=== PATIENT | female | born 1980 | race Caucasian/White ===

== ENCOUNTER 2017-02-03 10:09 | Emergency (ER) | payer MEDICAID ==
[~2017-02-03] VITALS: Ht 162.6 cm; Wt 61.2 kg
[~2017-02-03 10:09] MED LIST: FERR325T28 PO; MORP15TA10 PO; PANT40TA4 PO; RIVA10TA PO; TRAM50TA2 PO
[2017-02-03 13:19] VITALS: BP 118/74
== END 2017-02-03 13:20 | disposition home or self-care (01) ==
LOC: ER 10:10
DX: F10.129 Alcohol abuse with intoxication, unspecified (principal)
CPT/HCPCS: 99283; A4606; Z7610

== ENCOUNTER 2017-04-27 20:50 | Emergency (ER) | payer SELFPAY ==
[~2017-04-27] VITALS: Ht 175.3 cm; Wt 72.6 kg
--- NOTE | 2017-04-27 20:50 | NUR ---
PT TO ER BB RA FROM STREET FOR ETOH. NO IMMEDIATE SIGNS OF DISTRESS NOTED. PT VITAL SIGNS STABLE. PT ANSWERING QUESTIONS HOWEVER SOMNELENT. PT ADMITS TO DRINKING ALCOHOL. PT TO ER BED, CHANGED INTO GOWN AND CONNECTED TO MONITOR. WILL CONT TO MONITOR PT.
[2017-04-27 21:29] LABS: BASOPHILS # (AUTO) 0.3 /CMM (0.0-0.2); BASOPHILS % (AUTO) 3.3 % (0.0-2.0); EOSINOPHILS % (AUTO) 0.6 % (0.0-6.0); HEMATOCRIT 33 % (33-45); HEMOGLOBIN 11.1 g/dL (11.5-14.8); LYMPHOCYTES # (AUTO) 3.1 /CMM (0.8-4.8); MEAN CORPUSCULAR HEMOGLOBIN 28 PG (26.0-33.0); MEAN CORPUSCULAR HGB CONC 33 g/dl (31.0-36.0); MEAN CORPUSCULAR VOLUME 83 fL (82-100); MONOCYTES # (AUTO) 0.3 /CMM (0.1-1.30); MONOCYTES % (AUTO) 3.9 % (2.0-12.0); NEUTROPHILS # (AUTO) 4.6 /CMM (1.8-8.9); NEUTROPHILS % (AUTO) 55.2 % (43.0-81.0); PLATELET COUNT (AUTO) 121 /CMM (150-450); RDW COEFFICIENT OF VARIATION 17.3 (11.5-15.0); RED BLOOD CELL COUNT(AUTO) 4.02 MIL/uL (4.0-5.2); WHITE BLOOD COUNT (AUTO) 8.3 K/uL (4.3-11.0)
[2017-04-27 21:45] LABS: ALBUMIN 3.5 g/dL (3.4-5.0); BILIRUBIN,TOTAL 0.1 mg/dL (0.2-1.0); CALCIUM, SERUM 7.6 mg/dL (8.5-10.1); CREATININE 0.7 mg/dL (0.6-1.3); POTASSIUM 3.6 mmol/L (3.5-5.1); TOTAL PROTEIN, SERUM 6.6 g/dL (6.4-8.2)
[2017-04-27 21:46] LABS: SALICYLATE 0.8 mg/dL (2.8-20.0)
--- NOTE | 2017-04-28 00:12 | NUR ---
PT SLEEPING IN RRARITAN. NO IMMEDIATE SIGNS OF DISTRESS NOTED. PT VITAL SIGNS STABLE. WILL CONT TO MONITOR PT.
--- NOTE | 2017-04-28 05:21 | NUR ---
PT AMBULATORY WITH STEADY GAIT TO RESTROOM.
--- NOTE | 2017-04-28 06:10 | NUR ---
PT OK TO DISCHARGE PER DR LEBLANC. Patient discharged to home in stable condition. Written and verbal after care instructions given. Patient verbalizes understanding of instruction.Patient is awake and alert to self, day, and place. PT ambulatory with a steady gait.
[2017-04-28 07:02] VITALS: BP 110/74
== END 2017-04-28 07:03 | disposition home or self-care (01) ==
LOC: EDBD → ER 20:52
DX: F10.129 Alcohol abuse with intoxication, unspecified (principal)
CPT/HCPCS: 36415; 80048; 80076; 80329; 85025; 99284; A4606; G0480 ×2; Z7610

== ENCOUNTER 2017-04-28 11:02 | Emergency (ER) | payer SELFPAY ==
[~2017-04-28] VITALS: Ht 165.1 cm; Wt 69.4 kg
--- NOTE | 2017-04-28 11:02 | NUR ---
MARKO [address] FOR ETOH, BS=96MG/DL. GOWNED PT. CONNECTED TO MONITOR. VSEvelia. VENTURA OLIVARES ORDER.
--- NOTE | 2017-04-28 11:23 | NUR ---
CALLED [facility], SAID THEY WILL TELL THE EMS CAPTAIN THAT KODYJOYCE AGUILAR IS HERE.
--- NOTE | 2017-04-28 17:00 | NUR ---
WALKED OUT OF ER; AMBULATORY - STEADY GAIT NOTED; STATES " I HAVE TO WORK". NO ACUTE DISTRESS
[2017-04-28 17:39] VITALS: BP 115/45
== END 2017-04-28 17:00 | disposition home or self-care (01) ==
LOC: EDBD → ER 11:03
DX: F10.129 Alcohol abuse with intoxication, unspecified (principal); Z98.890 Other specified postprocedural states
CPT/HCPCS: A4606; Z7610

== ENCOUNTER 2017-04-28 18:41 | Emergency (ER) | payer SELFPAY ==
[~2017-04-28] VITALS: Ht 167.6 cm; Wt 68.0 kg
--- NOTE | 2017-04-28 18:43 | NUR ---
ETOH; FOUND SLEEPING IN THE SIDEWALK. CONNECTED TO MONITOR. VSS. SEEN BY . AWAITING FOR ORDER.
[2017-04-28 19:16] LABS: BASOPHILS # (AUTO) 0.1 /CMM (0.0-0.2); BASOPHILS % (AUTO) 1.1 % (0.0-2.0); EOSINOPHILS % (AUTO) 0.4 % (0.0-6.0); HEMATOCRIT 39 % (33-45); HEMOGLOBIN 12.9 g/dL (11.5-14.8); LYMPHOCYTES # (AUTO) 1.9 /CMM (0.8-4.8); MEAN CORPUSCULAR HEMOGLOBIN 27 PG (26.0-33.0); MEAN CORPUSCULAR HGB CONC 33 g/dl (31.0-36.0); MEAN CORPUSCULAR VOLUME 83 fL (82-100); MONOCYTES # (AUTO) 0.3 /CMM (0.1-1.30); MONOCYTES % (AUTO) 3.9 % (2.0-12.0); NEUTROPHILS # (AUTO) 6.3 /CMM (1.8-8.9); NEUTROPHILS % (AUTO) 72.6 % (43.0-81.0); PLATELET COUNT (AUTO) 279 /CMM (150-450); RDW COEFFICIENT OF VARIATION 17.7 (11.5-15.0); RED BLOOD CELL COUNT(AUTO) 4.73 MIL/uL (4.0-5.2); WHITE BLOOD COUNT (AUTO) 8.6 K/uL (4.3-11.0)
[2017-04-28 19:27] LABS: CALCIUM, SERUM 7.6 mg/dL (8.5-10.1); CARBON DIOXIDE 27 mmol/L (21-32); CHLORIDE 107 mmol/L (98-107); GLUCOSE 121 mg/dL (74-106); POTASSIUM 3.1 mmol/L (3.5-5.1); SODIUM SERUM 143 mmol/L (136-145); UREA NITROGEN, BLOOD 11 mg/dL (7-18)
--- NOTE | 2017-04-28 19:29 | NUR ---
URINE SAMPLE OBTAINED, SENT.
[2017-04-28 19:38] LABS: APPEARANCE,URINE Clear (CLEAR); BILIRUBIN,URINE Negative (NEGATIVE); BLOOD, URINE Trace-lysed Ery/uL (NEGATIVE); COLOR,URINE Yellow (YELLOW); KETONES,URINE Trace (NEGATIVE); LEUKOCYTE ESTERASE ,URINE Negative (NEGATIVE); NITRITE, URINE Negative (NEGATIVE); PROTEIN,URINE Negative (NEGATIVE); UGLUCOSE Negative (NEGATIVE); UROBILINOGEN,URINE 0.2 EU/dL (0.2)
[2017-04-28 19:40] LABS: ALANINE AMINOTRANSFERASE 21 U/L (12-78); ALBUMIN 3.9 g/dL (3.4-5.0); ALCOHOL, BLOOD 513 mg/dL (0-0); ALKALINE PHOSPHATASE 71 U/L (46-116); ASPARTATE AMINOTRANSFERASE 33 U/L (15-37); BILIRUBIN,TOTAL 0.2 mg/dL (0.2-1.0); TOTAL PROTEIN, SERUM 7.6 g/dL (6.4-8.2)
[2017-04-28 19:41] LABS: ACETAMINOPHEN < 2 ug/ml (10-30); SALICYLATE < 2.8 mg/dL (2.8-20.0)
[2017-04-28 20:03] LABS: BACTERIA,URINE None seen /HPF (None Seen); SQUAMOUS EPITHELIAL CELL,UR Few /HPF (None Seen); WBC,URINE 0-2 /HPF (0-3)
--- NOTE | 2017-04-29 00:10 | NUR ---
PT SLEEPING IN RLETOHATCHEE NO SIGNS OF DISTRESS NOTED. PT VITAL SIGNS STABLE. PT EASILY AROUSABLE, WILL CONT TO MONITOR PT.
--- NOTE | 2017-04-29 02:33 | NUR ---
PT AMBULATORY WITH STEADY GAIT TO RESTROOM. WILL CONT TO MONITOR PT.
--- NOTE | 2017-04-29 04:45 | NUR ---
PT REQUESTING TO BE DISCHARGED HOME. PT OK TO BE DISCHARGED PER DR CEJA. Patient discharged to home in stable condition. Written and verbal after care instructions given. Patient verbalizes understanding of instruction.Patient is awake and alert to self, day, and place. PT ambulatory with a steady gait
[2017-04-29 07:02] VITALS: BP 132/74
== END 2017-04-29 04:45 | disposition home or self-care (01) ==
LOC: EDBD → ER 18:43
DX: F10.129 Alcohol abuse with intoxication, unspecified (principal); Z59.0 Homelessness; Z98.890 Other specified postprocedural states
CPT/HCPCS: 36415; 80048-TC; 80076-TC; 80305; 81000-TC; 85025-TC; A4606; G0480; Z7610

== ENCOUNTER 2017-04-29 16:26 | Emergency (ER) | payer SELFPAY ==
[~2017-04-29] VITALS: Ht 170.2 cm; Wt 63.5 kg
--- NOTE | 2017-04-29 16:33 | NUR ---
PT BIB RA C/O ETOH INTOX. NAD NOTED. RESP EVEN UNLABORED. SKIN WARM NONDIAPHORETIC. IN ER BED 11 ON MONITOR.
--- NOTE | 2017-04-29 16:54 | NUR ---
CONTACTED [facility] PER NURSE PRACTIONER'S REVIEW OF PATIENTS HENOK NOTIFICATION
[2017-04-29 17:03] LABS: BASOPHILS % (AUTO) 0.3 % (0.0-2.0); EOSINOPHILS % (AUTO) 0.2 % (0.0-6.0); HEMATOCRIT 43 % (33-45); LYMPHOCYTES # (AUTO) 1.1 /CMM (0.8-4.8); LYMPHOCYTES % (AUTO) 13.4 % (20.0-44.0); MEAN CORPUSCULAR HEMOGLOBIN 27 PG (26.0-33.0); MEAN CORPUSCULAR HGB CONC 33 g/dl (31.0-36.0); MEAN CORPUSCULAR VOLUME 82 fL (82-100); MONOCYTES # (AUTO) 0.2 /CMM (0.1-1.30); MONOCYTES % (AUTO) 2.1 % (2.0-12.0); NEUTROPHILS # (AUTO) 6.7 /CMM (1.8-8.9); PLATELET COUNT (AUTO) 331 /CMM (150-450); RDW COEFFICIENT OF VARIATION 18.2 (11.5-15.0); RED BLOOD CELL COUNT(AUTO) 5.18 MIL/uL (4.0-5.2)
--- NOTE | 2017-04-29 17:06 | NUR ---
PT AROUSABLE TO VERBAL STIMULUS. PROVIDED WITH WATER. TOLERATING PO INTAKE.
[2017-04-29 17:29] LABS: ALBUMIN 4.1 g/dL (3.4-5.0); BILIRUBIN,DIRECT 0.1 mg/dL (0.0-0.2); BILIRUBIN,TOTAL 0.2 mg/dL (0.2-1.0); CALCIUM, SERUM 7.8 mg/dL (8.5-10.1); CREATININE 0.8 mg/dL (0.6-1.3); POTASSIUM 3.7 mmol/L (3.5-5.1); SALICYLATE 1.3 mg/dL (2.8-20.0); TOTAL PROTEIN, SERUM 8.2 g/dL (6.4-8.2)
--- NOTE | 2017-04-29 19:00 | NUR ---
CALLED [facility] SPOKE WITH [facility] PILOT [phone], TRANSFERRED TO PROGRAM SPECIALIST
--- NOTE | 2017-04-29 19:03 | NUR ---
SPOKE WITH [facility] [employer] SGT GORE WHO ADVISED THEY HAVE NO AVAILABLE UNITS AND WILL SEND SOMEBODY WHEN THEY CAN
--- NOTE | 2017-04-29 20:25 | NUR ---
Yanelis mckenzie in ED - 04/29/17 at 2027 by HFOX DPatient discharged to home in stable condition. Written and verbal after care instructions given. Patient verbalizes understanding of instruction.
--- NOTE | 2017-04-29 20:28 | NUR ---
PT UNABLE TO PROVIDE URINE SAMPLE AT THIS TIME. WILL TRY AGAIN PT CONTINUES TO SOBER UP.
--- NOTE | 2017-04-29 21:08 | NUR ---
ER OBS STATUS, RESTING QUIETLY. NAD NOTED.
--- NOTE | 2017-04-29 21:18 | NUR ---
AMBULATED TO RESTROOM WITH STEADY GAIT
--- NOTE | 2017-04-29 21:22 | NUR ---
PT FILLED URINE SAMPLE CUP WITH COLD WATER INSTEAD OF URINE. NEONATAL CRITICAL CARE NURSE NOTIFIED.
--- NOTE | 2017-04-29 23:30 | NUR ---
RECEIVED REPORT FROM PRIMARY NURSE ARLETTE AND ASSUMED CARE AT THIS TIME. PT GIVEN SANDWICH AND JUICE. ASSISTED TO RESTROOM AFTERWARDS. DENIES ANY MEDICAL SX'S/SI/HI. NON DIAPHORETIC. RESP EVEN AND UNLABORED.
--- NOTE | 2017-04-30 00:59 | NUR ---
Patient is resting quietly in bed with eyes closed. Easily aroused. VSS
--- NOTE | 2017-04-30 02:55 | NUR ---
AMBULATED TO RESTROOM WITH STEDY GAIT. NO DISTRESS NOTED. RESP EVEN AND UNLABORED.
--- NOTE | 2017-04-30 04:17 | NUR ---
Patient discharged to home in stable condition. Written and verbal after care instructions given. Patient verbalizes understanding of instruction. Ambulatory with a steady gait
[2017-04-30 04:18] VITALS: BP 127/70
== END 2017-04-30 04:20 | disposition home or self-care (01) ==
LOC: EDBD → ER 16:59
DX: F10.129 Alcohol abuse with intoxication, unspecified (principal); Z98.890 Other specified postprocedural states
CPT/HCPCS: 36415; 80048; 80076; 80329; 85025; 99284; A4606; G0480 ×2; Z7610

== ENCOUNTER 2017-04-30 10:36 | Emergency (ER) | payer SELFPAY ==
[~2017-04-30] VITALS: Ht 170.2 cm; Wt 63.5 kg
--- NOTE | 2017-04-30 10:45 | NUR ---
no acute distress; BB ems to Er after a bystander called 911 because she was seen sleeping at the side walk; admits to have been drinking; + alcohol smell on assessment
--- NOTE | 2017-04-30 11:12 | NUR ---
pt on bed, asleep.
--- NOTE | 2017-04-30 11:40 | NUR ---
Patient is resting comfortably in bed with eyes closed. Easily aroused.
--- NOTE | 2017-04-30 13:57 | NUR ---
Patient is awake, alert. Ambulatory. vss
[2017-04-30 14:04] VITALS: BP 110/74
--- NOTE | 2017-04-30 14:04 | NUR ---
Patient discharged to home in stable condition. Written and verbal after care instructions given. Patient verbalizes understanding of instruction.
== END 2017-04-30 14:05 | disposition home or self-care (01) ==
LOC: ER 10:39
DX: F10.129 Alcohol abuse with intoxication, unspecified (principal); Z98.890 Other specified postprocedural states
CPT/HCPCS: 99283; A4606; Z7610

== ENCOUNTER 2017-05-19 19:40 | Emergency (ER) | payer SELFPAY ==
[~2017-05-19] VITALS: Ht 157.5 cm; Wt 61.2 kg
--- NOTE | 2017-05-19 20:00 | NUR ---
PT BB EMS PARAMEDICS FOR ETOH INTOXICATION. PT A+OX2. SKIN WARM, DRY. AFEBRILE. RR EVEN, UNLABORED. PT ABLE TO INDEPENDENTLY MAINTAIN OWN AIRWAY. VSS, NAD NOTED. SHEETED TO ER BED 15 BY EMS PARAMEDICS. AWAITING MD SPAIN AND FURTHER ORDERS. WILL CONT TO MONITOR.
[2017-05-19 21:27] LABS: BASOPHILS # (AUTO) 0.1 /CMM (0.0-0.2); BASOPHILS % (AUTO) 1.5 % (0.0-2.0); EOSINOPHILS % (AUTO) 0.5 % (0.0-6.0); HEMATOCRIT 43 % (33-45); HEMOGLOBIN 13.5 g/dL (11.5-14.8); LYMPHOCYTES # (AUTO) 1.4 /CMM (0.8-4.8); LYMPHOCYTES % (AUTO) 28.5 % (20.0-44.0); MEAN CORPUSCULAR HEMOGLOBIN 27 PG (26.0-33.0); MEAN CORPUSCULAR HGB CONC 32 g/dl (31.0-36.0); MEAN CORPUSCULAR VOLUME 84 fL (82-100); MONOCYTES # (AUTO) 0.2 /CMM (0.1-1.30); MONOCYTES % (AUTO) 4.8 % (2.0-12.0); NEUTROPHILS # (AUTO) 3.1 /CMM (1.8-8.9); NEUTROPHILS % (AUTO) 64.7 % (43.0-81.0); PLATELET COUNT (AUTO) 368 /CMM (150-450); RDW COEFFICIENT OF VARIATION 18.8 (11.5-15.0); RED BLOOD CELL COUNT(AUTO) 5.09 MIL/uL (4.0-5.2); WHITE BLOOD COUNT (AUTO) 4.8 K/uL (4.3-11.0)
[2017-05-19 21:35] LABS: CALCIUM, SERUM 8.3 mg/dL (8.5-10.1); CARBON DIOXIDE 27 mmol/L (21-32); CHLORIDE 102 mmol/L (98-107); CREATININE 0.8 mg/dL (0.6-1.3); GLUCOSE 93 mg/dL (74-106); POTASSIUM 3.5 mmol/L (3.5-5.1); SODIUM SERUM 143 mmol/L (136-145); UREA NITROGEN, BLOOD 11 mg/dL (7-18)
[2017-05-19 21:43] LABS: ALANINE AMINOTRANSFERASE 47 U/L (12-78); ALBUMIN 4.3 g/dL (3.4-5.0); ALCOHOL, BLOOD 490 mg/dL (0-0); ALKALINE PHOSPHATASE 81 U/L (46-116); ASPARTATE AMINOTRANSFERASE 97 U/L (15-37); BILIRUBIN,DIRECT 0.1 mg/dL (0.0-0.2); BILIRUBIN,TOTAL 0.3 mg/dL (0.2-1.0); TOTAL PROTEIN, SERUM 8.3 g/dL (6.4-8.2)
[2017-05-19 21:45] LABS: ACETAMINOPHEN < 10 ug/ml (10-30); SALICYLATE 1.3 mg/dL (2.8-20.0)
--- NOTE | 2017-05-19 22:00 | NUR ---
PT SLEEPING COMFORTABLY LEFT LATERAL ON BED. OPENS EYES TO NAME; DECLINES TO ANSWER QUESTIONS AND RETURNS TO SLEEP. VSS, NAD NOTED. WILL CONT TO MONITOR.
[2017-05-19 22:45] LABS: APPEARANCE,URINE CLEAR (CLEAR); BILIRUBIN,URINE NEGATIVE (NEGATIVE); BLOOD, URINE TRACE-INTA Ery/uL (NEGATIVE); COLOR,URINE YELLOW (YELLOW); KETONES,URINE TRACE (NEGATIVE); LEUKOCYTE ESTERASE ,URINE NEGATIVE (NEGATIVE); NITRITE, URINE NEGATIVE (NEGATIVE); PROTEIN,URINE 1+ mg/dl (NEGATIVE); UGLUCOSE NEGATIVE (NEGATIVE); UROBILINOGEN,URINE 0.2 EU/dL (0.2)
[2017-05-19 23:53] LABS: BACTERIA,URINE None seen /HPF (None Seen); MUCUS,URINE Rare /LPF (None Seen); RBC,URINE 0-2 /HPF (0-2); SQUAMOUS EPITHELIAL CELL,UR Rare /HPF (None Seen); URINE AMORPHOUS URATE Few /HPF (None Seen); WBC,URINE NONE SEEN /HPF (0-3)
--- NOTE | 2017-05-20 00:49 | NUR ---
PT RESTING IN ER BED, NAD NOT, SKIN WARM AND DRY, RESPIRATION EVEN AND UNLABORED. PT IS ON FIBERLINE SUPERVISOR, WILL CONTINUE TO MONITOR
--- NOTE | 2017-05-20 02:38 | NUR ---
pt given water w/ ice, sitting up in bed drinking w/ no aspiration of flds noted. pt went back to sleep, in bed w/ resp even & unlabored, nad noted.
--- NOTE | 2017-05-20 05:00 | NUR ---
PT A+OX4. AMBULATED TO NURSING STATION WITH STEADY GAIT TO ASK FOR A SANDWICH.
[2017-05-20 05:38] VITALS: BP 105/61
--- NOTE | 2017-05-20 05:39 | NUR ---
Patient discharged to home in stable condition. Written and verbal after care instructions given. Patient verbalizes understanding of instruction. Patient given written and verbal discharge instructions. Patient verbalizes understanding of instructions. Patient is ambulatory with steady gait. Refuses offer of skilled nursing placement. Patient given list of available shelters in surrounding area.
== END 2017-05-20 05:43 | disposition home or self-care (01) ==
LOC: ER 19:42
DX: F10.229 Alcohol dependence with intoxication, unspecified (principal); Z98.890 Other specified postprocedural states
CPT/HCPCS: 36415; 51702; 80048; 80076; 80305; 80329; 81001; 85025; 99284; A4606 ×2; G0480 ×2; Z7610; 81000-TC

== ENCOUNTER 2017-05-30 19:04 | Emergency (ER) | payer SELFPAY ==
[~2017-05-30] VITALS: Ht 157.5 cm; Wt 61.2 kg
--- NOTE | 2017-05-30 19:10 | NUR ---
TO BED 11 BIB PARAMEDICS FROM [facility] FOR ETOH. PT AAOX4 NO ACUTE DISTRESS NOTED, RESP EVEN AND UNLABORED. PT ADMITS TO DRINKING ALCOHOL TODAY. PUPILS PERRL, PT ABLE TO MOVE ALL EXTREMITIES WELL WITH BILATERAL EQUAL DELIVERY DRIVER/CUSTOMER SERVICE. ER MD AT BEDSIDE TO GRABIEL PT.
--- NOTE | 2017-05-30 21:00 | NUR ---
PT SLEEPING COMFORTABLY ON BED. AWAKENS TO NAME THEN RETURNS TO SLEEP. VSS, NAD NOTED.
--- NOTE | 2017-05-30 23:00 | NUR ---
PT SLEEPING COMFORTABLY LEFT LATERAL ON BED. AWAKENS TO NAME AND ASKS FOR BLANKET. BLANKET GIVEN AND THEN PT RETURNS TO SLEEP. VSS, NAD NOTED.
--- NOTE | 2017-05-31 01:00 | NUR ---
PT AMBULATORY WITH STEADY GAIT, A+OX4, AND REQUESTS TO LEAVE. DR. LEBLANC AWARE.
--- NOTE | 2017-05-31 01:29 | NUR ---
Patient discharged to home in stable condition. Written and verbal after care instructions given. Patient verbalizes understanding of instruction. Patient is ambulatory with steady gait. Refuses offer of longterm placement. Patient given list of available shelters in surrounding area. VSS, NAD noted on DC. Denies complaint on DC.
[2017-05-31 01:31] VITALS: BP 126/63
== END 2017-05-31 01:32 | disposition home or self-care (01) ==
LOC: EDBD → ER 19:05
DX: F10.129 Alcohol abuse with intoxication, unspecified (principal)
CPT/HCPCS: 99283; A4606; Z7610

== ENCOUNTER 2017-06-02 10:47 | Emergency (ER) | payer SELFPAY ==
[~2017-06-02] VITALS: Ht 170.2 cm; Wt 60.8 kg
--- NOTE | 2017-06-02 11:00 | NUR ---
ASSUME PT CARE. ETOH. PASSED OUT. NO OBVIOUS TRAUMA NOTED SEEN IN ER MULTIPLE TIMES FOR INTOXICATION. ON MONITOR. VSS. AWAITING MD SPAIN.
--- NOTE | 2017-06-02 11:05 | NUR ---
PT TO RADIOLOGY FOR HEAD CT SCAN VIA [facility].
--- NOTE | 2017-06-02 17:27 | NUR ---
PT PROVIDED W/ FOOD AND ORAL FLUIDS PROVIDED. PT IS AAO, AMBULATORY W/ STEADY GAIT. D/C IN STABLE CONDITION.
[2017-06-02 17:28] VITALS: BP 108/77
== END 2017-06-02 17:29 | disposition home or self-care (01) ==
LOC: EDBD → ER 10:48
DX: F10.129 Alcohol abuse with intoxication, unspecified (principal); R51 Headache
CPT/HCPCS: 70450; 99284; A4606; Z7610

== ENCOUNTER 2017-06-03 06:33 | Emergency (ER) | payer SELFPAY ==
[~2017-06-03] VITALS: Ht 167.6 cm; Wt 61.2 kg
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
--- NOTE | 2017-06-03 08:00 | NUR ---
Patient is resting comfortably in bed with eyes closed. Easily aroused. VSS
--- NOTE | 2017-06-03 10:40 | NUR ---
Patient is resting comfortably in bed with eyes closed. Easily aroused. VSS
--- NOTE | 2017-06-03 11:22 | NUR ---
CALLED FOR FOOD TRAY
--- NOTE | 2017-06-03 13:10 | NUR ---
Patient discharged to home in stable condition. Written and verbal after care instructions given. Patient verbalizes understanding of instruction. Pt ambulatory with a steady gait.
[2017-06-03 14:00] VITALS: BP 124/71
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
== END 2017-06-03 14:01 | disposition home or self-care (01) ==
LOC: ER 06:35
DX: F10.129 Alcohol abuse with intoxication, unspecified (principal); R51 Headache
CPT/HCPCS: 70450; 99284; A4606; Z7610

== ENCOUNTER 2017-06-13 13:08 | Emergency (ER) | payer MEDICAID ==
[~2017-06-13] VITALS: Ht 165.1 cm; Wt 61.2 kg
[2017-06-13 13:19] VITALS: BP 138/67
--- NOTE | 2017-06-13 13:34 | NUR ---
KATIA LEBLANC AT BEDSIDE FOR EVAL.
[2017-06-13] MEDS ORDERED: SILVER SULFADIAZINE CREAM 25 GM TUBE TP ONE (14:00)
[2017-06-13] MEDS ORDERED: CEPHALEXIN MONOHYDRATE 500 MG CAPSULE PO ONE ×2 (14:00→14:21)
[2017-06-13] MEDS ORDERED: SULFAMETH/TRIMETH 800/160 MG 1 UDTAB TABLET PO ONE ×2 (14:00→14:22)
[2017-06-13] MEDS ORDERED: SILVER SULFADIAZINE CREAM 25 GM TUBE ONE (14:21)
== END 2017-06-13 14:57 | disposition home or self-care (01) ==
LOC: ER 13:14 → EDBD 13:14 → ER 14:57
DX: T21.02XA Burn of unspecified degree of abdominal wall, initial encounter (principal); F10.10 Alcohol abuse, uncomplicated; R21 Rash and other nonspecific skin eruption; L08.9 Local infection of the skin and subcutaneous tissue, unspecified; B96.89 Other specified bacterial agents as the cause of diseases classified elsewhere; Z98.890 Other specified postprocedural states; X12.XXXA Contact with other hot fluids, initial encounter; Y93.89 Activity, other specified; Y92.89 Other specified places as the place of occurrence of the external cause; Y99.9 Unspecified external cause status
CPT/HCPCS: 16000; 99284; A4606; A6253; Z7610

== ENCOUNTER 2017-07-16 11:20 | Emergency (ER) | payer MEDICAID ==
[~2017-07-16] VITALS: Ht 162.6 cm; Wt 59.0 kg
[2017-07-16] MEDS ORDERED: LORAZEPAM 1 MG TABLET ONE (12:19)
[2017-07-16 12:28] VITALS: BP 143/101
[2017-07-16] MEDS ORDERED: LORAZEPAM 1 MG TABLET PO ONE (12:30)
== END 2017-07-16 12:31 | disposition home or self-care (01) ==
LOC: ER 11:21
DX: F10.20 Alcohol dependence, uncomplicated (principal); F41.9 Anxiety disorder, unspecified
CPT/HCPCS: 99284; A4606; Z7610

== ENCOUNTER 2017-07-28 12:30 | Emergency (ER) | payer SELFPAY ==
[~2017-07-28] VITALS: Ht 170.2 cm; Wt 59.0 kg
[2017-07-28 16:11] VITALS: BP 120/83
== END 2017-07-28 16:12 | disposition home or self-care (01) ==
LOC: ER 12:33
DX: F10.129 Alcohol abuse with intoxication, unspecified (principal); R46.0 Very low level of personal hygiene; Z79.01 Long term (current) use of anticoagulants
CPT/HCPCS: 82962; 99283; A4606; Z7610

== ENCOUNTER 2017-07-28 18:45 | Emergency (ER) | payer SELFPAY ==
[~2017-07-28] VITALS: Ht 162.6 cm; Wt 59.0 kg
--- NOTE | 2017-07-28 19:26 | NUR ---
THE PATIENT WAS BROUGHT BY THE EMS AFTER A BYSTANDER CALLED 911- NO ACUTE DISTRESS. SHE ADMITS TO HAVE BEEN DRINKING ALCOHOL.
--- NOTE | 2017-07-28 19:27 | NUR ---
PLACED ON ER 15; NO ACUTE DISTRESS; AWAITING FOR MD TO SEE
--- NOTE | 2017-07-28 21:30 | NUR ---
PT SLEEPING LEFT LATERAL ON BED. AWAKENS TO NAME THEN RETURNS TO SLEEP. VSS, NAD NOTED. WILL CONT TO MONITOR.
--- NOTE | 2017-07-28 23:30 | NUR ---
PT SLEEPING SUPINE ON BED. AWAKENS TO NAME. PT GIVEN BLANKET THEN RETURNS TO SLEEP. VSS, NAD NOTED. WILL CONT TO MONITOR.
[2017-07-29 01:30] VITALS: BP 122/68
--- NOTE | 2017-07-29 01:30 | NUR ---
PT AWAKE SEMI FOLWERS ON BED. A+OX4. PT GIVEN CRAKERS AND JUICE REQUESTED. VSS, NAD NOTED. WILL CONT TO MONITOR.
--- NOTE | 2017-07-29 03:05 | NUR ---
Patient discharged to home in stable condition. Written and verbal after care instructions given. Patient verbalizes understanding of instruction. Pt ambulatory with a steady gait. VSS, NAD noted on DC. Denies complaint on DC.
== END 2017-07-29 03:11 | disposition home or self-care (01) ==
LOC: ER 18:48
DX: F10.129 Alcohol abuse with intoxication, unspecified (principal); Z79.01 Long term (current) use of anticoagulants
CPT/HCPCS: A4606; Z7610

== ENCOUNTER 2017-10-01 13:18 | Emergency (ER) | payer SELFPAY ==
[~2017-10-01] VITALS: Ht 172.7 cm; Wt 60.3 kg
--- NOTE | 2017-10-01 13:25 | NUR ---
BB SISTER IN LAW FROM HOME STATING "FOUND HER UNCONSCIOUS , SLEEPY, HEADACHE, SWOLLEN EYELID." DENIES ALCOHOL USE. A/OX 1-2. BREATHING EVEN AND UNLABORED. NO SOB. VITALS STABLE. SAFETY AND COMFORT MEASURES IN PLACE. AWAITING MD ORDERS.
--- NOTE | 2017-10-01 13:30 | NUR ---
[id number] CHANDANA MEZA . PTS BOYFRIEND
[2017-10-01 13:52] LABS: BASOPHILS % (AUTO) 0.5 % (0.0-2.0); EOSINOPHILS % (AUTO) 0.6 % (0.0-6.0); HEMATOCRIT 47 % (33-45); LYMPHOCYTES # (AUTO) 1.8 /CMM (0.8-4.8); LYMPHOCYTES % (AUTO) 45.3 % (20.0-44.0); MEAN CORPUSCULAR HEMOGLOBIN 30 PG (26.0-33.0); MEAN CORPUSCULAR HGB CONC 32 g/dl (31.0-36.0); MEAN CORPUSCULAR VOLUME 92 fL (82-100); MONOCYTES # (AUTO) 0.1 /CMM (0.1-1.30); MONOCYTES % (AUTO) 2.5 % (2.0-12.0); NEUTROPHILS # (AUTO) 2.2 /CMM (1.8-8.9); NEUTROPHILS % (AUTO) 51.1 % (43.0-81.0); PLATELET COUNT (AUTO) 210 /CMM (150-450); RDW COEFFICIENT OF VARIATION 16.5 (11.5-15.0); RED BLOOD CELL COUNT(AUTO) 5.08 MIL/uL (4.0-5.2); WHITE BLOOD COUNT (AUTO) 4.1 K/uL (4.3-11.0)
[2017-10-01 14:02] LABS: CALCIUM, SERUM 8.6 mg/dL (8.5-10.1); CREATININE 0.7 mg/dL (0.6-1.3); POTASSIUM 3.6 mmol/L (3.5-5.1)
[2017-10-01 14:10] LABS: BILIRUBIN,TOTAL 0.2 mg/dL (0.2-1.0); SALICYLATE 0.9 mg/dL (2.8-20.0); TOTAL PROTEIN, SERUM 7.6 g/dL (6.4-8.2)
[2017-10-01 15:35] VITALS: BP 108/72
--- NOTE | 2017-10-01 15:36 | NUR ---
Patient discharged to home in stable condition. Written and verbal after care instructions given. Patient verbalizes understanding of instruction.
== END 2017-10-01 15:36 | disposition home or self-care (01) ==
LOC: ER 13:21
DX: F10.129 Alcohol abuse with intoxication, unspecified (principal); Z79.01 Long term (current) use of anticoagulants
CPT/HCPCS: 36415; 70450; 80048; 80076; 80329; 84702; 85025; 99285; A4606; G0480 ×2; Z7610

== ENCOUNTER 2017-10-01 20:48 | Emergency (ER) | payer SELFPAY ==
[~2017-10-01] VITALS: Ht 167.6 cm; Wt 59.0 kg
--- NOTE | 2017-10-01 20:48 | NUR ---
PT BIBA#88 PT FOUND SLEEPING BEHIND GELSMahindra [employer] +ETOH, NAD NOTED, VSS, PT PUT ON MONITOR, WAITING FOR MD SPAIN
--- NOTE | 2017-10-01 22:48 | NUR ---
Patient is resting comfortably in bed with eyes closed. Easily aroused. VSS
--- NOTE | 2017-10-02 00:20 | NUR ---
PT SLEEPING COMFORTABLY ON BED. AWAKENS TO NAME THEN TURNS ON HER LEFT SIDE AND PULLS BLANKET OVER HEAD. DENIES COMPLAINT AND RETURNS TO SLEEP. VSS, NAD NOTED.
--- NOTE | 2017-10-02 02:22 | NUR ---
PT SLEEPING COMFORTABLY LEFT LATERAL ON BED. AWAKENS TO NAME DENIES COMPLAINT. GIVEN ADDITIONAL BLANKET REQUESTED. VSS, NAD NOTED.
--- NOTE | 2017-10-02 04:18 | NUR ---
PT SLEEPING COMFORTABLY SEMI FOWLERS ON BED. AWAKENS TO NAME DENIES COMPLAINT. GIVEN JUICE AND CRACKERS REQUESTED. VSS, NAD NOTED.
[2017-10-02 05:25] VITALS: BP 116/68
--- NOTE | 2017-10-02 05:35 | NUR ---
Patient given written and verbal discharge instructions. Patient verbalizes understanding of instructions. Patient is ambulatory with steady gait. Refuses offer of intermediate placement. Patient given list of available shelters in surrounding area. VSS, NAD noted on DC. Denies complaint on DC.
== END 2017-10-02 05:36 | disposition home or self-care (01) ==
LOC: ER 20:50
DX: F10.129 Alcohol abuse with intoxication, unspecified (principal); Z79.01 Long term (current) use of anticoagulants
CPT/HCPCS: 99283; A4606; Z7610

== ENCOUNTER 2017-10-02 07:44 | Emergency (ER) | payer SELFPAY ==
[~2017-10-02] VITALS: Ht 170.2 cm; Wt 64.0 kg
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
--- NOTE | 2017-10-02 09:41 | NUR ---
PT SLEEPING COMFORTABLY LEFT LATERAL ON BED. RESPONDS WITH INCOMPREHENSIBLE SPEECH WHEN CALLING HER NAME. RETURNS TO SLEEP AND PULLS BLANKET OVER HERSELF. VSS, NAD NOTED. BED AT LOWEST POSITION, BOTH HAND RAILS UP, ON VETERANS SERVICES SPECIALIST, AND CALL LIGHT WITHIN REACH. WILL CONT TO MONITOR.
--- NOTE | 2017-10-02 11:11 | NUR ---
ASSUME PT CARE. SLEEPING. AROUSABLE. ON MONITOR W/ STABLE VITALS.
--- NOTE | 2017-10-02 13:03 | NUR ---
PT SLEEPING COMFORTABLY ON BED. AWAKENS TO NAME THEN RETURNS TO SLEEP. VSS, NAD NOTED. BED AT LOWEST POSITION, BOTH HAND RAILS UP, ON MEAL MILLER, AND CALL LIGHT WITHIN REACH. WILL CONT TO MONITOR.
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
[2017-10-02 13:29] VITALS: BP 106/72
== END 2017-10-02 13:30 | disposition home or self-care (01) ==
LOC: ER 07:46
DX: F10.129 Alcohol abuse with intoxication, unspecified (principal); Z79.01 Long term (current) use of anticoagulants
CPT/HCPCS: 99283; A4606; Z7610

== ENCOUNTER 2017-10-02 16:12 | Emergency (ER) | payer SELFPAY ==
[~2017-10-02] VITALS: Ht 170.2 cm; Wt 64.0 kg
--- NOTE | 2017-10-02 16:15 | NUR ---
PT MARKO FROM [facility]. HERE FOR ETOH. WAS DISCHARGE EARLIER FOR SAME REASON. GOWNED AND PLACED ON MONITOR. STABLE VITALS. NAD NOTED. AWAITING MD SPAIN.
--- NOTE | 2017-10-02 16:21 | NUR ---
PETEY PLUMBING INSTALLER AT BEDSIDE FOR EVAL.
[2017-10-02] MEDS ORDERED: IV NS 0.9% 1,000 ML BAG IV ONE (16:30)
--- NOTE | 2017-10-02 16:40 | NUR ---
IV LINE STARTED BLOOD DRAWN AND SENT TO LAB.
[2017-10-02 16:46] LABS: BASOPHILS # (AUTO) 0.3 /CMM (0.0-0.2); BASOPHILS % (AUTO) 2.5 % (0.0-2.0); EOSINOPHILS % (AUTO) 0.1 % (0.0-6.0); HEMATOCRIT 44 % (33-45); HEMOGLOBIN 14.9 g/dL (11.5-14.8); LYMPHOCYTES # (AUTO) 1.4 /CMM (0.8-4.8); MEAN CORPUSCULAR HEMOGLOBIN 30 PG (26.0-33.0); MEAN CORPUSCULAR HGB CONC 34 g/dl (31.0-36.0); MEAN CORPUSCULAR VOLUME 90 fL (82-100); MONOCYTES # (AUTO) 0.3 /CMM (0.1-1.30); MONOCYTES % (AUTO) 2.2 % (2.0-12.0); NEUTROPHILS # (AUTO) 9.7 /CMM (1.8-8.9); NEUTROPHILS % (AUTO) 83.2 % (43.0-81.0); PLATELET COUNT (AUTO) 258 /CMM (150-450); RDW COEFFICIENT OF VARIATION 16.2 (11.5-15.0); RED BLOOD CELL COUNT(AUTO) 4.95 MIL/uL (4.0-5.2); WHITE BLOOD COUNT (AUTO) 11.7 K/uL (4.3-11.0)
[2017-10-02 17:06] LABS: ALANINE AMINOTRANSFERASE 44 U/L (12-78); ALBUMIN 4.3 g/dL (3.4-5.0); ALCOHOL, BLOOD 473 mg/dL (0-0); ALKALINE PHOSPHATASE 58 U/L (46-116); ASPARTATE AMINOTRANSFERASE 90 U/L (15-37); BILIRUBIN,TOTAL 0.3 mg/dL (0.2-1.0); CALCIUM, SERUM 8.8 mg/dL (8.5-10.1); CARBON DIOXIDE 17 mmol/L (21-32); CHLORIDE 104 mmol/L (98-107); CREATININE 0.7 mg/dL (0.6-1.3); GLUCOSE 81 mg/dL (74-106); SALICYLATE 4.8 mg/dL (2.8-20.0); SODIUM SERUM 141 mmol/L (136-145); UREA NITROGEN, BLOOD 14 mg/dL (7-18)
[2017-10-02 17:11] LABS: ACETAMINOPHEN < 2 ug/ml (10-30)
[2017-10-02 17:12] LABS: APPEARANCE,URINE Slightly Cloudy (CLEAR); BILIRUBIN,URINE Negative (NEGATIVE); BLOOD, URINE Trace-lysed Ery/uL (NEGATIVE); COLOR,URINE Yellow (YELLOW); KETONES,URINE 40 (NEGATIVE); LEUKOCYTE ESTERASE ,URINE Negative (NEGATIVE); NITRITE, URINE Negative (NEGATIVE); PH,URINE 5.5 (5.0-8.0); PROTEIN,URINE 30 mg/dl (NEGATIVE); UGLUCOSE Negative (NEGATIVE); UROBILINOGEN,URINE 0.2 EU/dL (0.2)
[2017-10-02 17:39] LABS: BACTERIA,URINE Few /HPF (None Seen); RBC,URINE NONE SEEN /HPF (0-2); SQUAMOUS EPITHELIAL CELL,UR Moderate /HPF (None Seen); URINE AMORPHOUS URATE Moderate /HPF (None Seen); WBC,URINE 0-2 /HPF (0-3)
--- NOTE | 2017-10-02 17:40 | NUR ---
PT PULLED IV OUT. 4X4 APPLIED. NO ACTTIVE BLEEDIING.
--- NOTE | 2017-10-02 20:30 | NUR ---
PT SLEEPING ON MONITOR. STABLE VITALS.
[2017-10-02 23:23] VITALS: BP 112/67
--- NOTE | 2017-10-02 23:23 | NUR ---
REPORT TO CHARGE NURSE ISABEL FOR EL.
--- NOTE | 2017-10-03 01:54 | NUR ---
ANKUR CAMACHO FROM THE ER, MADE AWARE
== END 2017-10-03 01:56 | disposition left against medical advice (07) ==
LOC: ER 16:15
DX: F10.129 Alcohol abuse with intoxication, unspecified (principal); Z79.01 Long term (current) use of anticoagulants
CPT/HCPCS: 36415; 80048-TC; 80076-TC; 80305; 81000-TC; 85025-TC; A4606; G0480; J7030; Z7610

== ENCOUNTER 2017-10-03 07:23 | Emergency (ER) | payer SELFPAY ==
[~2017-10-03] VITALS: Ht 167.6 cm; Wt 68.0 kg
--- NOTE | 2017-10-03 07:30 | NUR ---
[id number]: ETOH INTOXICATED, NAD NOTED, VSS, RESP EVEN AND UNLABORED, EYES CLOSED, EASILY AROUSABLE, PUT ON MONITOR, WAITING FOR MD SPAIN
[2017-10-03 10:52] VITALS: BP 94/63
--- NOTE | 2017-10-03 10:52 | NUR ---
Patient discharged to home in stable condition. Written and verbal after care instructions given. Patient verbalizes understanding of instruction.
== END 2017-10-03 10:53 | disposition home or self-care (01) ==
LOC: ER 07:24
DX: F10.129 Alcohol abuse with intoxication, unspecified (principal); F17.210 Nicotine dependence, cigarettes, uncomplicated; Z79.01 Long term (current) use of anticoagulants
CPT/HCPCS: A4606; Z7610

== ENCOUNTER → 2017-10-03 | Emergency (ER) | payer SELFPAY ==
[~2017-10-03] VITALS: Ht 170.2 cm; Wt 68.0 kg
[2017-10-03 11:38] VITALS: BP 139/80
--- NOTE | 2017-10-03 14:23 | NUR ---
I CALLED PATIENT'S EMERGENCY CONTACT (PATIENT'S BOYFRIEND CHANDANA MEZA WILL PICK PATIENT UP)
== END | disposition home or self-care (01) ==
LOC: ER 11:40
DX: F10.129 Alcohol abuse with intoxication, unspecified (principal); F17.210 Nicotine dependence, cigarettes, uncomplicated; Z79.01 Long term (current) use of anticoagulants
CPT/HCPCS: A4606; Z7610

== ENCOUNTER 2017-10-04 07:16 | Emergency (ER) | payer SELFPAY ==
[~2017-10-04] VITALS: Ht 165.1 cm; Wt 68.0 kg
--- NOTE | 2017-10-04 07:27 | NUR ---
PT T OED ROOM 16. [id number]. ETOH INTOXICATED. SIDE RAILS UP. HOB ELEVATED. CONNECTED TO MONITOR. NO VISIBLE INJURIES NOTED UPON ASSESSMENT. AWAITING EVALUATION BY ER PROVIDER.
--- NOTE | 2017-10-04 10:07 | NUR ---
PT IS RESTING COMFORTABLY NO ACUTE S/S OF DISTRESS NOTED AT THIS TIME
--- NOTE | 2017-10-04 14:16 | NUR ---
PT. VERBALIZED UNDERSTANDING OF AFTERCARE INSTRUCTIONS.Patient discharged to home in stable condition. Written and verbal after care instructions given. Patient verbalizes understanding of instruction.(pt. name) ambulatory with a steady gait
[2017-10-04 14:17] VITALS: BP 133/73
== END 2017-10-04 14:17 | disposition home or self-care (01) ==
LOC: ER 07:18
DX: F10.129 Alcohol abuse with intoxication, unspecified (principal); R51 Headache; Z79.01 Long term (current) use of anticoagulants
CPT/HCPCS: 70450; 99284; A4606; Z7610

== ENCOUNTER 2017-11-03 20:55 | Emergency (ER) | payer SELFPAY ==
[~2017-11-03] VITALS: Ht 165.1 cm; Wt 56.7 kg
--- NOTE | 2017-11-03 21:10 | NUR ---
BB RA FROM STREET FOR ETOH. PT AOX1 RESPONSIVE TO PAINFUL STIMULI. RR EVEN AND UNLABORED. NO SOB NOTED. NAD NOTED. NO NVD AT THIS TIME. PT NOT DIAPHORETIC. PT PLACED ON MONITOR WAITING FOR MD SPAIN.
--- NOTE | 2017-11-03 21:11 | NUR ---
ABRASIONS NOTED ON LLE AND ON LEFT SIDE OF FACE.
--- NOTE | 2017-11-03 21:17 | NUR ---
ROBE HOYT AT BEDSIDE FOR EVAL.
[2017-11-03] MEDS ORDERED: IV NS 0.9% 1,000 ML BAG IV ONE ×2 (21:30→23:00)
--- NOTE | 2017-11-03 21:44 | NUR ---
URINE OBTAINED VIA STRAIGHT CATH AND SENT TO LAB PER MD ORDERS.
--- NOTE | 2017-11-03 21:46 | NUR ---
PT TRANSFERRED TO ER BED 5. AIRCRAFT STRUCTURAL DESIGN ENGINEER DEGRASSI AWARE. PT WITH ALL PERSONAL BELONGINGS
--- NOTE | 2017-11-03 21:53 | NUR ---
NASAL TRUMPET PLACED ON RIGHT NARE PER MD ORDERS
--- NOTE | 2017-11-03 21:54 | NUR ---
LAB AT BEDSIDE FOR EVAL.
--- NOTE | 2017-11-03 21:58 | NUR ---
REPORT GIVEN TO CALEB MONK
[2017-11-03 21:59] LABS: BASOPHILS % (AUTO) 0.5 % (0.0-2.0); EOSINOPHILS % (AUTO) 0.7 % (0.0-6.0); HEMATOCRIT 44 % (33-45); HEMOGLOBIN 14.5 g/dL (11.5-14.8); LYMPHOCYTES # (AUTO) 2.1 /CMM (0.8-4.8); LYMPHOCYTES % (AUTO) 40.7 % (20.0-44.0); MEAN CORPUSCULAR HEMOGLOBIN 30 PG (26.0-33.0); MEAN CORPUSCULAR HGB CONC 33 g/dl (31.0-36.0); MEAN CORPUSCULAR VOLUME 91 fL (82-100); MONOCYTES # (AUTO) 0.3 /CMM (0.1-1.30); MONOCYTES % (AUTO) 6.4 % (2.0-12.0); NEUTROPHILS # (AUTO) 2.7 /CMM (1.8-8.9); NEUTROPHILS % (AUTO) 51.7 % (43.0-81.0); PLATELET COUNT (AUTO) 208 /CMM (150-450); RDW COEFFICIENT OF VARIATION 14.4 (11.5-15.0); RED BLOOD CELL COUNT(AUTO) 4.86 MIL/uL (4.0-5.2); WHITE BLOOD COUNT (AUTO) 5.3 K/uL (4.3-11.0)
--- NOTE | 2017-11-03 22:06 | NUR ---
PT TO CT.
[2017-11-03 22:11] LABS: CREATININE 0.7 mg/dL (0.6-1.3); POTASSIUM 3.8 mmol/L (3.5-5.1)
[2017-11-03 22:13] LABS: APPEARANCE,URINE SL CLOUDY (CLEAR); BILIRUBIN,URINE NEGATIVE (NEGATIVE); BLOOD, URINE 1+ Ery/uL (NEGATIVE); COLOR,URINE YELLOW (YELLOW); KETONES,URINE NEGATIVE (NEGATIVE); LEUKOCYTE ESTERASE ,URINE NEGATIVE (NEGATIVE); NITRITE, URINE NEGATIVE (NEGATIVE); PROTEIN,URINE NEGATIVE (NEGATIVE); UGLUCOSE NEGATIVE (NEGATIVE); UROBILINOGEN,URINE 0.2 EU/dL (0.2)
[2017-11-03 22:18] LABS: ALBUMIN 3.9 g/dL (3.4-5.0); BILIRUBIN,TOTAL 0.1 mg/dL (0.2-1.0); TOTAL PROTEIN, SERUM 7.7 g/dL (6.4-8.2)
[2017-11-03 22:20] LABS: SALICYLATE 0.8 mg/dL (2.8-20.0)
[2017-11-03 22:24] LABS: BACTERIA,URINE None seen /HPF (None Seen); SQUAMOUS EPITHELIAL CELL,UR Few /HPF (None Seen); WBC,URINE 0-2 /HPF (0-3)
--- NOTE | 2017-11-04 05:34 | NUR ---
pt ambulatory with steady gait. Patient is awake and alert to self, day, and place.
--- NOTE | 2017-11-04 05:35 | NUR ---
pt ok to discharge per dr shaw. Patient discharged to home in stable condition. Written and verbal after care instructions given. Patient verbalizes understanding of instruction.
[2017-11-04 05:37] VITALS: BP 118/64
--- NOTE | 2017-11-04 05:37 | NUR ---
IV removed. Catheter intact and site benign. Pressure and 4x4 applied to site. No bleeding noted. Patient discharged to home in stable condition. Written and verbal after care instructions given. Patient verbalizes understanding of instruction. Patient is ambulatory with steady gait. Patient said she will take a bus going home. Instructed not to drive. vss. nad on dc. No further complaints.
== END 2017-11-04 05:36 | disposition home or self-care (01) ==
LOC: ER 20:56
DX: F10.129 Alcohol abuse with intoxication, unspecified (principal); S00.83XA Contusion of other part of head, initial encounter; X58.XXXA Exposure to other specified factors, initial encounter; Y93.89 Activity, other specified; Y92.89 Other specified places as the place of occurrence of the external cause; Y99.8 Other external cause status
CPT/HCPCS: 36415; 51702; 70450; 80048; 80076; 80305; 80329; 81001; 82962; 84703; 85025; 96360; 96361; 99285; A4606; G0480 ×2; J7030 ×2; Z7610; 81000-TC

== ENCOUNTER 2017-11-04 08:11 | Emergency (ER) | payer SELFPAY ==
[~2017-11-04] VITALS: Ht 170.2 cm; Wt 61.2 kg
[2017-11-04 13:19] VITALS: BP 100/64
== END 2017-11-04 13:35 | disposition home or self-care (01) ==
LOC: ER 08:14
DX: F10.129 Alcohol abuse with intoxication, unspecified (principal); F17.200 Nicotine dependence, unspecified, uncomplicated
CPT/HCPCS: 99283; A4606; Z7610

== ENCOUNTER 2017-11-04 17:50 | Emergency (ER) | payer SELFPAY ==
[~2017-11-04] VITALS: Ht 167.6 cm; Wt 61.2 kg
--- NOTE | 2017-11-04 18:17 | NUR ---
BBRA FROM STREETS: ETOH. PLACED ON MONITOR. AWAITING MD ORDER
--- NOTE | 2017-11-04 19:11 | NUR ---
PT TAKEN TO CT
--- NOTE | 2017-11-04 21:54 | NUR ---
Patient discharged to home in stable condition. Written and verbal after care instructions given. Patient verbalizes understanding of instruction.
[2017-11-04 22:01] VITALS: BP 100/72
== END 2017-11-04 22:02 | disposition home or self-care (01) ==
LOC: ER 17:51
DX: R41.82 Altered mental status, unspecified (principal); T51.91XA Toxic effect of unspecified alcohol, accidental (unintentional), initial encounter; Y92.89 Other specified places as the place of occurrence of the external cause; F17.200 Nicotine dependence, unspecified, uncomplicated
CPT/HCPCS: 70450; 99284; A4606 ×2; Z7610

== ENCOUNTER 2017-11-09 16:56 | Emergency (ER) | payer SELFPAY ==
[~2017-11-09] VITALS: Ht 162.6 cm; Wt 56.7 kg
--- NOTE | 2017-11-09 20:57 | NUR ---
ASSUMED CARE OF PT. PT IS EASILY AROUSED AND IS ON THE MONITOR/CONTINUOUS PULSE OX. PT REQUESTED WATER. ROAD SIGN INSTALLERROMIE, IS AT THE BEDSIDE WITH A CUP OF WATER.
--- NOTE | 2017-11-09 21:20 | NUR ---
PT APPEARS TO BE RESTING COMFORTABLY WITH NO S/S OF PAIN OR DISTRESS.
--- NOTE | 2017-11-09 22:45 | NUR ---
Patient discharged to home in stable condition. Written and verbal after care instructions given. Patient verbalizes understanding of instruction. PT AMBULATED OUT WITH A STEADY GAIT. VSS. PT IS WAITING IN THE LOBBY AT THIS TIME.
[2017-11-10 00:57] VITALS: BP 136/75
== END 2017-11-09 22:45 | disposition home or self-care (01) ==
LOC: ER 16:58
DX: G93.40 Encephalopathy, unspecified (principal); F17.200 Nicotine dependence, unspecified, uncomplicated; F10.10 Alcohol abuse, uncomplicated
CPT/HCPCS: 99283; A4606; Z7610

== ENCOUNTER 2018-01-09 08:11 | Emergency (ER) | payer SELFPAY ==
[~2018-01-09] VITALS: Ht 167.6 cm; Wt 67.1 kg
[2018-01-09 09:29] LABS: BASOPHILS % (AUTO) 0.6 % (0.0-2.0); EOSINOPHILS % (AUTO) 0.3 % (0.0-6.0); HEMATOCRIT 43 % (33-45); HEMOGLOBIN 14.7 g/dL (11.5-14.8); LYMPHOCYTES # (AUTO) 1.6 /CMM (0.8-4.8); LYMPHOCYTES % (AUTO) 24.8 % (20.0-44.0); MEAN CORPUSCULAR HEMOGLOBIN 30 PG (26.0-33.0); MEAN CORPUSCULAR HGB CONC 34 g/dl (31.0-36.0); MEAN CORPUSCULAR VOLUME 90 fL (82-100); MONOCYTES # (AUTO) 0.2 /CMM (0.1-1.30); NEUTROPHILS # (AUTO) 4.5 /CMM (1.8-8.9); NEUTROPHILS % (AUTO) 71.3 % (43.0-81.0); PLATELET COUNT (AUTO) 196 /CMM (150-450); RDW COEFFICIENT OF VARIATION 16.1 (11.5-15.0); RED BLOOD CELL COUNT(AUTO) 4.85 MIL/uL (4.0-5.2); WHITE BLOOD COUNT (AUTO) 6.3 K/uL (4.3-11.0)
[2018-01-09 09:47] LABS: INR 0.9 (0.87-1.13)
[2018-01-09 09:57] LABS: CALCIUM, SERUM 8.6 mg/dL (8.5-10.1); CARBON DIOXIDE 23 mmol/L (21-32); CHLORIDE 102 mmol/L (98-107); CREATININE 0.8 mg/dL (0.6-1.3); GLUCOSE 108 mg/dL (74-106); SODIUM SERUM 140 mmol/L (136-145); UREA NITROGEN, BLOOD 7 mg/dL (7-18)
[2018-01-09 10:08] LABS: ALANINE AMINOTRANSFERASE 50 U/L (12-78); ALBUMIN 4.6 g/dL (3.4-5.0); ALCOHOL, BLOOD 496 mg/dL (0-0); ALKALINE PHOSPHATASE 78 U/L (46-116); ASPARTATE AMINOTRANSFERASE 66 U/L (15-37); BILIRUBIN,DIRECT 0.1 mg/dL (0.0-0.2); BILIRUBIN,TOTAL 0.2 mg/dL (0.2-1.0); TOTAL PROTEIN, SERUM 9.3 g/dL (6.4-8.2)
[2018-01-09 10:10] LABS: SALICYLATE 1.5 mg/dL (2.8-20.0)
[2018-01-09 11:01] LABS: ACETAMINOPHEN < 2 ug/ml (10-30)
[2018-01-09] MEDS ORDERED: POTASSIUM CHLORIDE 20 MEQ TAB.PRT.SR PO ONE ×2 (14:30→16:16)
[2018-01-09 17:27] VITALS: BP 118/70
--- NOTE | 2018-01-09 17:27 | NUR ---
Patient discharged to home in stable condition. Written and verbal after care instructions given. Patient verbalizes understanding of instruction.
== END 2018-01-09 17:29 | disposition home or self-care (01) ==
LOC: ER 08:12
DX: T51.91XA Toxic effect of unspecified alcohol, accidental (unintentional), initial encounter (principal); G93.40 Encephalopathy, unspecified; E87.6 Hypokalemia; F17.200 Nicotine dependence, unspecified, uncomplicated; Y92.89 Other specified places as the place of occurrence of the external cause
CPT/HCPCS: 36415; 70450; 71045; 80048; 80076; 80329; 84703; 85025; 85730; 99285; A4606; G0480 ×2; Z7610

== ENCOUNTER 2018-01-09 18:26 | Emergency (ER) | payer SELFPAY ==
[~2018-01-09] VITALS: Ht 167.6 cm; Wt 67.1 kg
--- NOTE | 2018-01-09 18:40 | NUR ---
[id number]: ETOH INTOXICATED. NAD NOTED, VSS, RESP EVEN AND UNLABORED, PT WAS PUT ON MONITOR, WAITING FOR MD SPAIN.
--- NOTE | 2018-01-09 21:20 | NUR ---
Patient is resting comfortably in bed with eyes closed. Easily aroused. VSS
--- NOTE | 2018-01-09 23:17 | NUR ---
ENDORSED TO CEASAR, CHARGE NURSE, VSS, RESTING COMFORTABLY, ON MONITOR.
[2018-01-10 03:25] VITALS: BP 120/71
--- NOTE | 2018-01-10 03:25 | NUR ---
Patient given written and verbal discharge instructions. Patient verbalizes understanding of instructions. Patient is ambulatory with steady gait. Refuses offer of [place] [facility] placement. Patient given list of available shelters in surrounding area.
== END 2018-01-10 03:26 | disposition home or self-care (01) ==
LOC: ER 18:28
DX: F10.129 Alcohol abuse with intoxication, unspecified (principal); F17.200 Nicotine dependence, unspecified, uncomplicated
CPT/HCPCS: 99283; A4606; Z7610; J7030

== ENCOUNTER 2018-01-11 03:25 | Emergency (ER) | payer SELFPAY ==
[~2018-01-11] VITALS: Ht 162.6 cm; Wt 59.0 kg
--- NOTE | 2018-01-11 03:30 | NUR ---
RECEIVED REPORT AT [facility] TIME. HERE FOR ALCOHOL INTOXICATION. NO S/S OF ACUTE TRAUMA NOTED. RESP EVENA ND UNLABORED. PLACED ON MONITOR. WAKES UP INTERMITTENTLY AND SAYS "FUCK".
--- NOTE | 2018-01-11 04:00 | NUR ---
NOTED RESTLESS AND USING AGGRESSIVE LANGUAGE. ALL NEEDS MET. STILL MONITORED
[2018-01-11] MEDS ORDERED: HALOPERIDOL LACTATE INJ 5 MG/ML VIAL IM ONE (04:30)
[2018-01-11 04:46] LABS: BASOPHILS % (AUTO) 0.3 % (0.0-2.0); HEMATOCRIT 41 % (33-45); LYMPHOCYTES # (AUTO) 1.8 /CMM (0.8-4.8); LYMPHOCYTES % (AUTO) 21.7 % (20.0-44.0); MEAN CORPUSCULAR HEMOGLOBIN 30 PG (26.0-33.0); MEAN CORPUSCULAR HGB CONC 34 g/dl (31.0-36.0); MEAN CORPUSCULAR VOLUME 89 fL (82-100); MONOCYTES # (AUTO) 0.2 /CMM (0.1-1.30); MONOCYTES % (AUTO) 2.7 % (2.0-12.0); NEUTROPHILS # (AUTO) 6.2 /CMM (1.8-8.9); NEUTROPHILS % (AUTO) 75.3 % (43.0-81.0); PLATELET COUNT (AUTO) 262 /CMM (150-450); RDW COEFFICIENT OF VARIATION 15.8 (11.5-15.0); RED BLOOD CELL COUNT(AUTO) 4.65 MIL/uL (4.0-5.2); WHITE BLOOD COUNT (AUTO) 8.3 K/uL (4.3-11.0)
[2018-01-11 04:49] LABS: APPEARANCE,URINE CLEAR (CLEAR); BILIRUBIN,URINE NEGATIVE (NEGATIVE); BLOOD, URINE TRACE Ery/uL (NEGATIVE); COLOR,URINE YELLOW (YELLOW); KETONES,URINE 1+ (NEGATIVE); LEUKOCYTE ESTERASE ,URINE NEGATIVE (NEGATIVE); NITRITE, URINE NEGATIVE (NEGATIVE); PH,URINE 5.5 (5.0-8.0); PROTEIN,URINE NEGATIVE (NEGATIVE); UGLUCOSE NEGATIVE (NEGATIVE); UROBILINOGEN,URINE 0.2 EU/dL (0.2)
[2018-01-11 04:55] LABS: CALCIUM, SERUM 7.9 mg/dL (8.5-10.1); CREATININE 0.8 mg/dL (0.6-1.3); POTASSIUM 4.2 mmol/L (3.5-5.1)
[2018-01-11 05:00] LABS: BACTERIA,URINE Few /HPF (None Seen); SQUAMOUS EPITHELIAL CELL,UR Rare /HPF (None Seen)
[2018-01-11 05:02] LABS: ALBUMIN 3.9 g/dL (3.4-5.0); BILIRUBIN,DIRECT 0.1 mg/dL (0.0-0.2); BILIRUBIN,TOTAL 0.3 mg/dL (0.2-1.0); TOTAL PROTEIN, SERUM 7.9 g/dL (6.4-8.2)
[2018-01-11 05:04] LABS: SALICYLATE 1.8 mg/dL (2.8-20.0)
[2018-01-11] MEDS ORDERED: HALOPERIDOL LACTATE INJ 5 MG/ML VIAL ONE (05:08)
[2018-01-11 05:11] LABS: THYROID STIMULATING HORMONE 0.36 uIU/mL (0.358-3.74)
[2018-01-11] MEDS ORDERED: IV NS 0.9% 1,000 ML BAG IV ONE (05:30)
[2018-01-11] MEDS ORDERED: HALOPERIDOL LACTATE INJ 5 MG/ML VIAL IV ONE (05:30)
--- NOTE | 2018-01-11 05:55 | NUR ---
TO CT VIA [facility]
--- NOTE | 2018-01-11 07:00 | NUR ---
Patient is resting comfortably in bed with eyes closed. Easily aroused. VSS
--- NOTE | 2018-01-11 09:00 | NUR ---
Patient is resting comfortably in bed with eyes closed. Easily aroused. VSS
--- NOTE | 2018-01-11 11:00 | NUR ---
Patient is resting comfortably in bed with eyes closed. Easily aroused. VSS
[2018-01-11 12:45] VITALS: BP 120/68
--- NOTE | 2018-01-11 12:46 | NUR ---
Patient discharged to home in stable condition. Written and verbal after care instructions given. Patient verbalizes understanding of instruction.
== END 2018-01-11 12:47 | disposition home or self-care (01) ==
LOC: ER 03:27
DX: S00.81XA Abrasion of other part of head, initial encounter (principal); F10.129 Alcohol abuse with intoxication, unspecified; F17.200 Nicotine dependence, unspecified, uncomplicated; X58.XXXA Exposure to other specified factors, initial encounter; Y93.89 Activity, other specified; Y92.89 Other specified places as the place of occurrence of the external cause; Y99.8 Other external cause status
CPT/HCPCS: 36415; 70450-TC; 71045-TC; 72125-TC; 80048-TC; 80076-TC; 80305; 81000-TC; 83690-TC; 84443-TC; 84703-TC; 85025-TC; A4606; G0480; J1630; J7030; Z7610

== ENCOUNTER 2018-01-11 15:56 | Emergency (ER) | payer SELFPAY ==
[~2018-01-11] VITALS: Ht 160 cm; Wt 65.8 kg
--- NOTE | 2018-01-11 16:05 | NUR ---
PT BIB RA WITH A C/O ETOH. PT IS EASILY AROUSED. PT IS AA&OX2. PT IS ON THE MONITOR AND CONTINUOUS PULSE OX. PT WAS JUST D/C'D FROM THE ER 1.5 HRS AGO. WILL CONTINUE TO MONITOR THE PT.
--- NOTE | 2018-01-11 16:57 | NUR ---
PT WANTS TO USE THE BATHROOM. PT BEING ASSISTED TO THE BATHROOM BY EMT. PT IS AMBULATORY WITH A STEADY GAIT.
--- NOTE | 2018-01-11 17:02 | NUR ---
PT AMBULATED BACK TO BED #15 WITH A STEADY GAIT.
--- NOTE | 2018-01-11 17:53 | NUR ---
KANCHAN WAS ADJUSTED IN BED AND GIVEN BLANKETS. PT IS ON THE MONITOR AND CONTINUOUS PULSE OX.
--- NOTE | 2018-01-11 18:13 | NUR ---
PT AMBULATED TO THE BATHROOM WITH A STEADY GAIT.
--- NOTE | 2018-01-11 18:40 | NUR ---
PT REC'D A ROAST BEEF SANDWICH AND JELLO WITH WATER. PT IS TOLERATING PO WELL.
--- NOTE | 2018-01-11 18:54 | NUR ---
PT AMBULATED TO THE NURSES STATION STATING: " I'M READY TO GO." PT WAS ASSISTED BACK TO BED.
--- NOTE | 2018-01-11 19:57 | NUR ---
PT APPEARS TO BE RESTING COMFORTABLY. PT IS NOT ON THE MONITOR AT THIS TIME. ATAXIA NOTED WHEN PT WALKS.
--- NOTE | 2018-01-11 19:58 | NUR ---
BENJI NOONAN IS AT THE BEDSIDE.
--- NOTE | 2018-01-11 20:00 | NUR ---
PT IS C/O KNEE PAIN. XRAY ORDERED.
--- NOTE | 2018-01-11 20:05 | NUR ---
HCG WAIVER GIVEN TO RADIOLOGY. XRAY TAKEN AT THE BEDSIDE.
--- NOTE | 2018-01-11 20:38 | NUR ---
PT C/O FEELING COLD. PT REC'D 3 WARM BLANKETS. PT IS AWAITING XRAY RESULTS.
--- NOTE | 2018-01-11 21:33 | NUR ---
PT APPEARS TO BE RESTING COMFORTABLY WITH NO S/S OF PAIN OR DISRESS.
--- NOTE | 2018-01-11 21:59 | NUR ---
CALLED NURSING [facility] RE: TAMIE ALCOCER. WAITING FOR [facility] DEL[facility] TO CALL BACK. BENJI ROMERO IS AWARE.
--- NOTE | 2018-01-11 22:18 | NUR ---
PT REC'D A TAXI VOUCHER HOME. Patient discharged to home in stable condition. Written and verbal after care instructions given. Patient verbalizes understanding of instruction. VSS. PT AMBULATED OUT TO THE TAXI WITH A STEADY GAIT.
[2018-01-11 22:20] VITALS: BP 122/83
== END 2018-01-11 22:19 | disposition home or self-care (01) ==
LOC: ER 15:58
DX: F10.129 Alcohol abuse with intoxication, unspecified (principal); F17.200 Nicotine dependence, unspecified, uncomplicated
CPT/HCPCS: 73564-TC; 82962-TC; A4606; Z7610

== ENCOUNTER 2018-01-13 19:15 | Emergency (ER) | payer SELFPAY ==
[~2018-01-13] VITALS: Ht 157.5 cm; Wt 61.2 kg
--- NOTE | 2018-01-13 19:15 | NUR ---
BIBRA FOR ETOH; FOUND PASSED OUT IN A PIZZA PLACE. NO SOB NOTED OR PAIN C/O. A/OX3 NOT ABLE TO COMPLETELY FOLLOW COMMANDS. WILL CONTINUE TO MONITOR FOR ANY CHANGES DURING THE SHIFT
--- NOTE | 2018-01-13 21:00 | NUR ---
PT IN COMFORTABLE POSITION IN BED SLEEPING
[2018-01-13] MEDS ORDERED: TDAP [DIPH/PERTUSSIS/TET] 0.5 ML VIAL IM ONE (22:21)
[2018-01-13] MEDS ORDERED: LIDOCAINE 1% INJ 50 ML MDV IJ ONE (22:21)
--- NOTE | 2018-01-13 22:49 | NUR ---
PT STABLE SLEEPING COMFORTABLY IN BED
--- NOTE | 2018-01-14 03:45 | NUR ---
PT REQUESTED JUICE. VSS NAD WILL CONTINUE TO MONITOR FOR ANY CHANGES
--- NOTE | 2018-01-14 05:10 | NUR ---
PT SLEEPING IN COMFORTABLE POSITION
[2018-01-14 06:54] VITALS: BP 134/72
== END 2018-01-14 06:55 | disposition home or self-care (01) ==
LOC: ER 19:17
DX: F10.129 Alcohol abuse with intoxication, unspecified (principal); F17.200 Nicotine dependence, unspecified, uncomplicated
CPT/HCPCS: 99283; A4606; J3490; Z7610; 90715

== ENCOUNTER 2018-01-15 19:25 | Emergency (ER) | payer SELFPAY ==
[~2018-01-15] VITALS: Ht 165.1 cm; Wt 59.0 kg
--- NOTE | 2018-01-15 19:55 | NUR ---
PT BIBRA TO ER BED 15. HERE FOR ETOH. SEEN IN ER MULTIPLE TIMES FOR SAME REASON. NO OBVIOUS TRAUMA NOTED. PT IS AWAKE. VERBALLY RESPONSIVE. ADMITS TO DRINKING ALCOHOL. STABLE VITALS. AWAITING MD SPAIN.
--- NOTE | 2018-01-15 19:58 | NUR ---
DR MALAVE AT BEDSIDE FOR EVAL.
--- NOTE | 2018-01-15 21:30 | NUR ---
PT SLEEPING IN BED. ON MONITOR. STABLE VITALS. WILL CONT TO MONITOR.
--- NOTE | 2018-01-16 06:46 | NUR ---
PT OK TO DISCHARGE PER DR CEJA. Patient discharged to home in stable condition. Written and verbal after care instructions given. Patient verbalizes understanding of instruction.Patient is awake and alert to self, day, and place. PT ambulatory with a steady gait
[2018-01-16 06:47] VITALS: BP 124/72
== END 2018-01-16 06:48 | disposition home or self-care (01) ==
LOC: ER 19:26
DX: F10.129 Alcohol abuse with intoxication, unspecified (principal); F17.200 Nicotine dependence, unspecified, uncomplicated
CPT/HCPCS: 99283; A4606; Z7610

== ENCOUNTER → 2018-01-24 | Emergency (ER) | payer SELFPAY ==
[~2018-01-24] VITALS: Ht 177.8 cm; Wt 68.0 kg
[~2018-01-24] MED LIST changes: +IV NS 0.9% 1,000 ML BAG IV ONE; +POTASSIUM CHLORIDE 20 MEQ POWDER PACKET PO ONE; +POTASSIUM CHLORIDE 20 MEQ TAB.PRT.SR PO ONE
--- NOTE | 2018-01-24 03:00 | NUR ---
PT BIBA#878 PT FOUND SLEEPING ON SIDEWALK +ETOH. PT TOLERATED TRANSFER TO BED. PT PLACED ON MONITOR AND VITALS WNL. RR WNL. AWAITING MD SPAIN.
[2018-01-24 03:39] LABS: BASOPHILS % (AUTO) 0.4 % (0.0-2.0); EOSINOPHILS % (AUTO) 0.6 % (0.0-6.0); HEMATOCRIT 33 % (33-45); HEMOGLOBIN 11.2 g/dL (11.5-14.8); LYMPHOCYTES # (AUTO) 2.7 /CMM (0.8-4.8); LYMPHOCYTES % (AUTO) 43.6 % (20.0-44.0); MEAN CORPUSCULAR HEMOGLOBIN 31 PG (26.0-33.0); MEAN CORPUSCULAR HGB CONC 34 g/dl (31.0-36.0); MEAN CORPUSCULAR VOLUME 90 fL (82-100); MONOCYTES # (AUTO) 0.5 /CMM (0.1-1.30); MONOCYTES % (AUTO) 7.8 % (2.0-12.0); NEUTROPHILS % (AUTO) 47.6 % (43.0-81.0); PLATELET COUNT (AUTO) 314 /CMM (150-450); RDW COEFFICIENT OF VARIATION 16.6 (11.5-15.0); RED BLOOD CELL COUNT(AUTO) 3.65 MIL/uL (4.0-5.2); WHITE BLOOD COUNT (AUTO) 6.3 K/uL (4.3-11.0)
[2018-01-24 03:50] LABS: CREATININE 0.5 mg/dL (0.6-1.3)
[2018-01-24 03:57] LABS: ALBUMIN 2.7 g/dL (3.4-5.0); BILIRUBIN,DIRECT 0.1 mg/dL (0.0-0.2); BILIRUBIN,TOTAL 0.3 mg/dL (0.2-1.0); SALICYLATE 0.7 mg/dL (2.8-20.0); TOTAL PROTEIN, SERUM 7.3 g/dL (6.4-8.2)
--- NOTE | 2018-01-24 06:52 | NUR ---
Yanelis mckenzie in EDM - 01/24/18 at 0653 by SANJANA Patient discharged to home in stable condition. Written and verbal after care instructions given. Patient verbalizes understanding of instruction. pt. ambulatory with a steady gait. pt left hospital in stable condition.
--- NOTE | 2018-01-24 07:30 | NUR ---
pt blood pressure is 86/37. iv started and 1 liter bolus started.
[2018-01-24 10:48] LABS: APPEARANCE,URINE SL CLOUDY (CLEAR); BILIRUBIN,URINE NEGATIVE (NEGATIVE); BLOOD, URINE NEGATIVE Ery/uL (NEGATIVE); COLOR,URINE YELLOW (YELLOW); KETONES,URINE TRACE (NEGATIVE); LEUKOCYTE ESTERASE ,URINE NEGATIVE (NEGATIVE); NITRITE, URINE NEGATIVE (NEGATIVE); PROTEIN,URINE TRACE mg/dl (NEGATIVE); UGLUCOSE NEGATIVE (NEGATIVE)
--- NOTE | 2018-01-24 11:15 | NUR ---
PT ATE AND PULLED OUT IV
[2018-01-24 11:23] LABS: BACTERIA,URINE Rare /HPF (None Seen); MUCUS,URINE Moderate /LPF (None Seen); RBC,URINE 0-2 /HPF (0-2); SQUAMOUS EPITHELIAL CELL,UR Moderate /HPF (None Seen)
--- NOTE | 2018-01-24 11:55 | NUR ---
PT AMB GAIT STEADY GETTING DRESSED
[2018-01-24 11:57] VITALS: BP 118/67
--- NOTE | 2018-01-24 11:58 | NUR ---
PT. VERBALIZED UNDERSTANDING OF AFTERCARE INSTRUCTIONS.Patient discharged to home in stable condition. Written and verbal after care instructions given. Patient verbalizes understanding of instruction.
== END | disposition home or self-care (01) ==
LOC: ER 02:58
DX: F10.129 Alcohol abuse with intoxication, unspecified (principal); T68.XXXA Hypothermia, initial encounter; F17.200 Nicotine dependence, unspecified, uncomplicated; Z59.0 Homelessness; X31.XXXA Exposure to excessive natural cold, initial encounter
CPT/HCPCS: 36415; 80048; 80076; 80305; 80329; 81001; 85025; 96360; 99284; A4606; G0480 ×2; J7030; Z7610; 81000-TC